=== PATIENT | female | born 1970 | race Caucasian/White ===

== ENCOUNTER 2017-01-07 20:51 | Emergency (ER) | payer OTHER ==
[~2017-01-07] VITALS: Ht 160 cm; Wt 74.8 kg
[~2017-01-07 20:51] MED LIST: FLEXERIL10 MG PO; MOTRIN 600 MG600 MG PO; ULTRAM(MONOGRAP50 MG PO; VICODIN5-300 PO
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
[2017-01-07] MEDS ORDERED: PERCOCET 5-3251 EACH PO (21:47)
[2017-01-07] MEDS ORDERED: MEDROL4 M2 PO (21:47)
[2017-01-07] MEDS ORDERED: ZOFRAN ODT4 M1 PO (21:47)
[2017-01-07] MEDS ORDERED: CYCLOBENZAPRINE10 M1 PO (21:47)
[2017-01-07 22:08] VITALS: BP 130/63
== END 2017-01-07 22:09 ==
LOC: ERH 20:51
DX: M54.5 Low back pain (principal)
CPT/HCPCS: 96372; J1885